=== PATIENT | female | born 1980 | race Caucasian/White ===

== ENCOUNTER → 2018-02-28 | Outpatient (CLI) | payer BC, OTHER ==
--- NOTE | 2018-03-04 13:32 | MM ---
Reason for exam: screening (asymptomatic). Last mammogram was performed 1 year and 10 months ago. History: Patient history of other cancer. Physical Findings: A clinical breast exam by your physician is recommended on an annual basis and results should be correlated with mammographic findings. MG Screening Mammo w CAD Bilateral CC and MLO view(s) were taken. Prior study comparison: May 04, 2016, bilateral MG screening mammo w CAD. April 18, 2015, right breast MG work up mamm w CAD RT. The breast tissue is extremely dense which could obscure a lesion on mammography. There is no discrete abnormality. ASSESSMENT: Negative, BI-RAD 1 RECOMMENDATION: Routine screening mammogram of both breasts in 1 year.
== END | disposition home or self-care (01) ==
LOC: RADMAMWWP 09:25
PROVIDERS: ATTEND Internal Medicine
DX: Z12.31 Encounter for screening mammogram for malignant neoplasm of breast (principal)
CPT/HCPCS: 77067

== ENCOUNTER → 2019-01-05 | Outpatient (CLI) | payer OTHER ==
--- NOTE | 2019-01-05 13:06 | MM ---
Reason for exam: clinical finding. Last mammogram was performed 10 months ago. History: Patient history of other cancer. Indicated problem(s): lump or thickening in the right breast. Physical Findings: Nurse Summary: 1.5cm nodule in the right breast at 8 o'clock (nurse mj). MG Diagnostic Mammo w CAD RADAMES Bilateral CC and MLO view(s) were taken. Prior study comparison: February 28, 2018, bilateral MG screening mammo w CAD. May 04, 2016, bilateral MG screening mammo w CAD. The breast tissue is heterogeneously dense. This may lower the sensitivity of mammography. No suspicious abnormality in the left breast. 2.5cm lower outer quadrant anterior depth focal asymmetry in the right breast. These results were verbally communicated with the patient and result sheet given to the patient on 01/05/19. ASSESSMENT: Incomplete: need additional imaging evaluation, BI-RAD 0 RECOMMENDATION: Ultrasound of the right breast. (lower outer quadrant)
--- NOTE | 2019-01-05 13:11 | USB ---
Reason for exam: additional evaluation requested from abnormal screening. History: Patient history of other cancer. US Breast Limited RT Right limited breast ultrasound including focal area of concern, retroareolar and axilla demonstrates a 0.6 x 0.5 x 0.3cm solid, duct ectasia at 5 o'clock for which a biopsy is recommended, a 2.5 x 3.3 x 1.7cm oval, lobular, solid, vascular lesion at 8-9 o'clock for which a biopsy is recommended, a 0.3 x 0.6 x 0.3cm oval, cystic lesion at 10 o'clock and ductal ectasia at the posterior nipple, follow up in 6 months versus biopsy based on additional biopsy results. These results were verbally communicated with the patient and result sheet given to the patient on 01/05/19. ASSESSMENT: Suspicious, BI-RAD 4 RECOMMENDATION: Ultrasound core biopsy of the right breast. (x 2) Called with mammographic findings and has scheduled an appointment for the patient for 02/02/19 at 12:[address] Riggins. Biopsy scheduled for 01/26/19 at 8:00. PRELIMINARY REPORT CALLED AND FAXED TO DR. RIGGINS ON 01/05/19.
== END | disposition home or self-care (01) ==
LOC: RADMAMWWP 07:18
PROVIDERS: ATTEND Internal Medicine
DX: N63.0 Unspecified lump in unspecified breast (principal); R92.8 Other abnormal and inconclusive findings on diagnostic imaging of breast
CPT/HCPCS: 77066

== ENCOUNTER → 2019-01-26 | Day surgery (SDC) | payer OTHER ==
[2019-01-26 07:20] VITALS: RESP 16; TEMP 97.7; BMI 49.1
[2019-01-26 09:26] VITALS: BP 133/85; PULSE 77
--- NOTE | 2019-01-26 10:15 | USB ---
ULTRASOUND GUIDED CORE BIOPSY RIGHT BREAST 2 LOCATIONS: CLINICAL HISTORY: Request for right breast core biopsy at 2 locations FINDINGS: The procedure was explained to the patient. The risks, complications, benefits and alternatives were discussed and any questions were answered. Informed consent was obtained. Patient was placed supine on the ultrasound table and prepped and draped in the usual sterile fashion. Utilizing a 14 gauge needle, five passes were made into the 8:00 lesion requested. Subsequently 4 passes were made into the 5-6 o'clock lesion. A postbiopsy clip were placed and post procedure mammogram demonstrated ideal placement of the clips. Patient was stable throughout the procedure. Pathology is pending. All elements of maximal barrier technique were utilized. IMPRESSION: 1. Successful ultrasound guided right breast core biopsy of 2 lesions. Pathology Results: Benign A. RIGHT BREAST, SITE A 8:00, ULTRASOUND GUIDED CORE BIOPSY: Fibroadenoma. B. RIGHT BREAST, SITE B 6:00, ULTRASOUND GUIDED CORE BIOPSY: Fibrocystic changes including fibrosis, adenosis and small cysts. Inspissated fibrinous material and blood suggestive of cyst contents. Recommendation Follow up mammogram of the right breast in 6 months. SONALD
--- NOTE | 2019-01-26 10:59 | MM ---
Reason for exam: additional evaluation requested from abnormal screening. Last mammogram was performed 1 month ago. History: Patient history of other cancer. MG Diagnostic Mammo RT Wo CAD CC and LM view(s) were taken of the right breast. Prior study comparison: January 05, 2019, bilateral MG diagnostic mammo w CAD RADAMES. February 28, 2018, bilateral MG screening mammo w CAD. ASSESSMENT: Post procedure mammogram for marker placement RECOMMENDATION: Ultrasound of the right breast in 6 months. PENDING PATHOLOGY RESULTS.
== END | disposition home or self-care (01) ==
LOC: RADUSWWP 06:47
PROVIDERS: ATTEND Internal Medicine
DX: D24.1 Benign neoplasm of right breast (principal)
CPT/HCPCS: 88305; 77065; 19083; 19084; A4648; J2001

== ENCOUNTER → 2019-04-06 | Outpatient (CLI) | payer OTHER ==
--- NOTE | 2019-04-07 08:26 | XR ---
EXAMINATION TYPE: XR foot complete RT DATE OF EXAM: 04/06/2019 COMPARISON: NONE HISTORY: Pain TECHNIQUE: Three views are submitted. FINDINGS: The osseous structures are intact. There is no acute fracture or dislocation. Arthropathy of the f irst MTP. Tiny calcaneal spur noted. IMPRESSION: 1. No acute fracture or dislocation. If symptoms persist, follow-up exam in 7 to 10 days could be ob tained. 2. Arthropathy first TP
== END ==
LOC: RADXRYALE 16:50
PROVIDERS: ATTEND Internal Medicine
DX: M19.071 Primary osteoarthritis, right ankle and foot (principal)

== ENCOUNTER → 2024-12-01 | Outpatient (CLI) | payer BC ==
--- NOTE | 2024-12-01 15:17 | MM ---
Reason for Exam: Clinical finding. Last mammogram was performed 5 year(s) and 11 month(s) ago. Indicated Problems: Pain of the right side (Focal) for 2 Week(s) : 6 oclock. Patient History: Menarche at age 11. First Full-Term at age 21. Hysterectomy at age 22. Patient has history of breast feeding. 01/26/2019, Benign Core Biopsy on the right side. 01/26/2019, Benign Core Biopsy on the right side. Last menstrual period: 11/12/2024 Risk Values: Rekha 5 year model risk: 1.8%. NCI Lifetime model risk: 13.1%. Prior Study Comparison: 05/04/2016 Bilateral Screening Mammogram, [facility]. 02/28/2018 Bilateral Screening Mammogram, [facility]. 01/05/2019 Bilateral Diagnostic Mammogram, [facility]. 01/26/2019 Right Diagnostic Mammogram, [facility]. Tissue Density: The breasts are heterogeneously dense, which may obscure small masses. Findings: Analyzed By CAD. Right breast biopsy clip. Right breast: Increasing size of right breast mass 3.3 cm from nipple measuring 16 mm in the outer lower aspect. Left breast: No new suspicious masses, calcifications or distortions. Benign-appearing calcifications left breast. Overall Assessment: Incomplete: need additional imaging evaluation, BI-RAD 0 Management: Diagnostic Breast Ultrasound of the right breast. Results were given to the patient verbally at the time of exam. Patient should continue monthly self-breast exams. A clinical breast exam by your physician is recommended on an annual basis. This exam should not preclude additional follow-up of suspicious palpable abnormalities. Note on Rekha scores and lifetime risk: 1. A Rekha score greater than 3% is considered moderate risk. If this is the case, consider specialist referral to assess eligibility for a risk reducing agent. 2. If overall lifetime risk for the development of breast cancer is 20% or higher, the patient may qualify for future screening with alternating mammogram and breast MRI. [facility], , 12/01/2024 3:14 PM. Electronically signed and approved by: Keyshawn Leong DO
--- NOTE | 2024-12-02 07:08 | USB ---
Reason for Exam: Additional evaluation requested from abnormal screening. Patient History: Menarche at age 11. First Full-Term at age 21. Hysterectomy at age 22. Patient has history of breast feeding. 01/26/2019, Benign Core Biopsy on the right side. 01/26/2019, Benign Core Biopsy on the right side. Risk Values: Rekha 5 year model risk: 1.8%. NCI Lifetime model risk: 13.1%. Technique: Method: Targeted. Prior Study Comparison: 02/28/2018 Bilateral Screening Mammogram, [facility]. 01/05/2019 Bilateral Diagnostic Mammogram, [facility]. 01/26/2019 Right Diagnostic Mammogram, [facility]. Findings: The lower section of the breast of the right breast, the axilla of the right breast and the retroareolar of the right breast were scanned. Technique utilized:US breast limited RT Image; Ultrasound imaging of: Area of concern, retroareolar region and axilla. Right breast scanned from 6-8 o'clock. * Few dilated ducts are seen at 6:00 3 cm from nipple location. No intraductal mass visualized. * Right breast 10:00 3 cm from the nipple 22 x 19 x 30 mm hypoechoic mass. * Right Breast 8:00 5 cm from nipple 13 x 7 x 10 mm hypoechoic mass. Overall Assessment: Probably benign, BI-RAD 3 Management: Diagnostic Breast Ultrasound of the right breast in 6 months. A clinical breast exam by your physician is recommended on an annual basis and results should be correlated with mammographic findings. This exam should not preclude additional follow-up of suspicious palpable abnormalities. Results were given to the patient verbally at the time of exam. [facility], , 12/01/2024 3:52 PM. Electronically signed and approved by: Keyshawn Leong DO
== END | disposition home or self-care (01) ==
LOC: RADMAMWWP 14:52
PROVIDERS: ATTEND Internal Medicine
DX: N64.4 Mastodynia (principal); R92.333 Mammographic heterogeneous density, bilateral breasts; N63.12 Unspecified lump in the right breast, upper inner quadrant
CPT/HCPCS: 77062; 77066